=== PATIENT | female | born 1950 | race Caucasian/White ===

== ENCOUNTER 2017-02-17 16:19 | Outpatient (CLI) | payer BC | END 2017-02-17 16:20 | disposition home or self-care (01) | DX: S83.91XA Sprain of unspecified site of right knee, initial encounter (principal); M25.461 Effusion, right knee ==

== ENCOUNTER 2017-02-20 08:46 | Outpatient (CLI) | payer BC | END 2017-02-20 08:47 | disposition home or self-care (01) | DX: Z13.820 Encounter for screening for osteoporosis (principal); M85.88 Other specified disorders of bone density and structure, other site; Z78.0 Asymptomatic menopausal state ==

== ENCOUNTER 2017-05-09 10:53 | Outpatient (CLI) | payer BC ==
[2017-05-09 18:15] LABS: ALBUMIN/GLOBULIN RATIO 1.2 (1.0-2.2); BILIRUBIN,TOTAL 0.6 mg/dL (0.2-1.0); CALCIUM 9.4 mg/dL (8.5-10.3); CREATININE 0.6 mg/dL (0.4-1.0); TOTAL PROTEIN 7.7 g/dL (6.7-8.2)
== END 2017-05-09 10:54 | disposition home or self-care (01) ==
LOC: LAB.F 10:53
PROVIDERS: ATTEND Physician Assistant Medical
DX: Z79.899 Other long term (current) drug therapy (principal)
CPT/HCPCS: 36415; 80053

== ENCOUNTER 2018-04-15 08:00 | Outpatient (CLI) | payer MEDICARE, OTHER ==
[2018-04-15 17:48] LABS: BASOPHILS # (AUTO) 0.1 10^3/uL (0.0-0.1); BASOPHILS % (AUTO) 0.8 %; EOSINOPHILS # (AUTO) 0.2 10^3/uL (0.0-0.7); EOSINOPHILS % (AUTO) 2.1 %; HGB - HEMOGLOBIN 13.4 g/dL (12.0-16.0); LYMPHOCYTES # (AUTO) 2.3 10^3/uL (1.5-3.5); LYMPHOCYTES % (AUTO) 27.2 %; MEAN CORPUSCULAR HEMOGLOBIN 30.3 pg (27.0-31.0); MEAN CORPUSCULAR HGB CONC 33.5 g/dL (32.0-36.0); MEAN CORPUSCULAR VOLUME 90.5 fL (81.0-99.0); MEAN PLATELET VOLUME 8.4 fL (7.9-10.8); MONOCYTES # (AUTO) 0.8 10^3/uL (0.0-1.0); MONOCYTES % (AUTO) 9.3 %; NEUTROPHILS # (AUTO) 5.1 10^3/uL (1.5-6.6); NEUTROPHILS % (AUTO) 60.6 %; PLT - PLATELET COUNT 252 10^3/uL (130-450); RED BLOOD COUNT 4.41 10^6/uL (4.20-5.40); RED CELL DISTRIBUTION WIDTH 14.4 % (12.0-15.0); WHITE BLOOD COUNT 8.5 x10^3/uL (4.8-10.8)
[2018-04-15 17:56] LABS: ALBUMIN/GLOBULIN RATIO 1.2 (1.0-2.2); BILIRUBIN,TOTAL 0.6 mg/dL (0.2-1.0); CALCIUM 9.2 mg/dL (8.5-10.3); CREATININE 0.6 mg/dL (0.4-1.0); TOTAL PROTEIN 7.4 g/dL (6.7-8.2)
== END 2018-04-15 08:01 | disposition home or self-care (01) ==
LOC: LAB.F 08:00
PROVIDERS: ATTEND Physician Assistant Medical
DX: Z51.81 Encounter for therapeutic drug level monitoring (principal)
CPT/HCPCS: 36415; 80053; 85025

== ENCOUNTER 2018-06-21 15:02 | Emergency (ER) | payer MEDICARE, OTHER ==
[2018-06-21 15:09] VITALS: BP 127/70
--- NOTE | 2018-06-21 15:39 | XRAY Report ---
Procedure Date: 06/21/2018 Accession Number: [id number] / [id number] Procedure: XR - Wrist 4 View LT CPT Code: FULL RESULT: EXAM: LEFT WRIST RADIOGRAPHY EXAM DATE: 06/21/2018 03:00 PM. CLINICAL HISTORY: Trauma. COMPARISON: None. TECHNIQUE: 4 views. FINDINGS: Bones: There is a linear lucency seen across the distal radial metaphysis on the scaphoid and oblique views. Carpal bones appear intact. Proximal metacarpals appear unremarkable. Joints: Alignment appears normal. Soft Tissues: There is soft tissue swelling adjacent to the distal radius. IMPRESSION: Nondisplaced distal radial metaphysis fracture. RADIA
--- NOTE | 2018-06-21 15:46 | ED Physician Documentation ---
PD HPI UPPER EXT INJURY - Stated complaint Stated Complaint: LEFT WRIST INJURY - Chief complaint Chief Complaint: Ext Problem - History obtained from History obtained from: Patient - History of Present Illness Location: Left, Wrist Type of injury: Fall (slid and fell, caught herself with left outstretched arm.) Timing - onset: Today Timing - details: Abrupt onset, Still present Improved by: Rest Worsened by: Moving, Palpating Associated symptoms: Swelling. No: Weakness, Numbness Similar symptoms before: Has not had sx before Recently seen: Not recently seen Review of Systems Skin: denies: Abrasion (s), Laceration (s) Musculoskeletal: denies: Neck pain, Back pain Neurologic: denies: Focal weakness, Numbness, Altered mental status, Headache, Head injury PD PAST MEDICAL HISTORY - Past Medical History Past Medical History: Yes Psych: Depression - Past Surgical History Past Surgical History: Yes /[employer]: Hysterectomy - Present Medications Home Medications: Ambulatory Orders Medication Instructions Recorded Confirmed FLUoxetine [PROzac] 20 mg PO DAILY 06/21/18 06/21/18 HYDROcod/ACETAM 5/325 [[place] 5/325] 1 tab PO Q6H PRN #15 tablet 06/21/18 Hydrocodone/Acetaminophen [Vicodin 1 each PO 06/21/18 5-300 mg Tablet] - Allergies Allergies/Adverse Reactions: Allergies Allergy/AdvReac Type Severity Reaction Status Date / Time No Known Drug Allergies Allergy Verified 06/21/18 15:07 - Social History Does the pt smoke?: Yes Smoking Status: Current every day smoker Does the pt drink ETOH?: Yes Does the pt have substance abuse?: No - POLST Patient has POLST: No PD ED PE NORMAL - Vitals Vital signs reviewed: Yes - General General: Alert and oriented X 3, No acute distress, Well developed/nourished - HEENT HEENT: Atraumatic - Neck Neck: Supple, no meningeal sign, No bony TTP, No adenopathy - Respiratory Respiratory: Clear bilaterally, Other (no chestwall tenderness) - Abdomen Abdomen: Soft, Non tender - Derm Derm: Normal color, Warm and dry - Extremities Extremities: Other (left wrist tender at distal radius. elbow and shoulder not tender. Good color and cap refill in fingers. ) - Neuro Neuro: Alert and oriented X 3, No motor deficit, No sensory deficit, Normal speech Results - Vitals Vitals: Vital Signs - 24 hr 06/21/18 15:05 Temperature 36.6 C Heart Rate 79 Respiratory 18 Rate Blood Pressure 127/70 O2 Saturation 98 Oxygen O2 Source Room air - Rads (name of study) left wrist Radiology: Prelim report reviewed, EMP read contemporaneously (distal radius fracture, nondisplaced. ) Procedures - Splint (location) left wrist Splint applied by: Tech Type of splint: Prefab velcro wrist Other: Patient tolerated well, No complications, Neurovascular intact, Sling provided PD MEDICAL DECISION MAKING - ED course Complexity details: reviewed results (nondisplaced distal radial fracture, appears very stable. Will treat with splint. ), considered differential, d/w patient - Sepsis Event Vital Signs: Vital Signs - 24 hr 06/21/18 15:05 Temperature 36.6 C Heart Rate 79 Respiratory 18 Rate Blood Pressure 127/70 O2 Saturation 98 Oxygen O2 Source Room air Departure - Departure Disposition: 01 Home, Self Care Clinical Impression: Fall from slip, trip, or stumble Qualifiers: Encounter type: initial encounter Qualified Code(s): W01.0XXA - Fall on same level from slipping, tripping and stumbling without subsequent striking against object, initial encounter Distal radius fracture, left Qualifiers: Encounter type: initial encounter Fracture type: closed Fracture morphology: unspecified fracture morphology Qualified Code(s): S52.502A - Unspecified fracture of the lower end of left radius, initial encounter for closed fracture Condition: Stable Record reviewed to determine appropriate education?: Yes Instructions: ED Fx Wrist General Follow-Up: Iwona Chavez PA-C [Primary Care Provider] - [facility] [Provider Group] Prescriptions: HYDROcod/ACETAM 5/325 [[place] 5/325] 1 tab PO Q6H PRN #15 tablet PRN Reason: Pain Comments: Keep the splint on for the next 4-6 weeks until well healed. The duration will be based on follow-up exams. Call your primary care tomorrow to see if they want to do the follow-up or they would prefer you to go to orthopedics. Call for an appointment for follow-up appointment to be in about 1-1/2 weeks. Use some ibuprofen or naproxen 2-3 times a day for pain and add Tylenol or hydrocodone if needed for pain. Rest ice and elevate your wrist often. Minimal lifting and use of your wrist until follow-up. Discharge Date/Time: 06/21/18 17:00
[2018-06-21] MEDS ORDERED: HYDROcod/ACETAM 5/325 MG TABLET PO STA (16:12)
[2018-06-21] MEDS ORDERED: IBUPROFEN 600 MG TABLET PO STA (16:12)
== END 2018-06-21 17:00 | disposition home or self-care (01) ==
LOC: ED 15:02
DX: S52.502A Unspecified fracture of the lower end of left radius, initial encounter for closed fracture (principal); W01.0XXA Fall on same level from slipping, tripping and stumbling without subsequent striking against object, initial encounter
CPT/HCPCS: 73110; 99283; A9270

== ENCOUNTER 2018-07-17 08:46 | Outpatient (CLI) | payer MEDICARE, OTHER ==
--- NOTE | 2018-07-17 13:00 | XRAY Report ---
Procedure Date: 07/17/2018 Accession Number: [id number] / [id number] Procedure: XRS - Wrist 2 View LT CPT Code: FULL RESULT: EXAM: LEFT WRIST RADIOGRAPHY EXAM DATE: 07/17/2018 08:57 AM. CLINICAL HISTORY: Other fractures of lower end of left radius. COMPARISON: Wrist 4 views, left 06/21/2018. TECHNIQUE: 3 views. FINDINGS: Bones: Interval development of lucent line bordered by sclerosis, confirming the previously suspected nondisplaced radial fracture in good alignment with ongoing healing. Joints: Normal. No subluxations. Soft Tissues: Normal. No soft tissue swelling. IMPRESSION: Ongoing healing of essentially nondisplaced radial head fracture. RADIA
== END 2018-07-17 08:47 | disposition home or self-care (01) ==
LOC: DI.S 08:46
PROVIDERS: ATTEND Physician Assistant Medical
DX: S52.125D Nondisplaced fracture of head of left radius, subsequent encounter for closed fracture with routine healing (principal)

== ENCOUNTER 2018-09-08 11:27 | Outpatient (CLI) | payer MEDICARE, OTHER ==
--- NOTE | 2018-09-08 16:18 | XRAY Report ---
Reason: ELBOW JOINT PAIN, LEFT Procedure Date: 09/08/2018 Accession Number: [id number] / [id number] Procedure: XR - Elbow 3 View LT CPT Code: FULL RESULT: EXAM: LEFT ELBOW RADIOGRAPHY EXAM DATE: 09/08/2018 11:45 AM. CLINICAL HISTORY: Elbow joint pain, left. COMPARISON: None. TECHNIQUE: 3 views. FINDINGS: Bones: Normal. No fractures or bone lesions. Joints: Normal. No effusion. No subluxation. Soft Tissues: Normal. No soft tissue swelling. IMPRESSION: Normal elbow radiography. RADIA
== END 2018-09-08 11:28 | disposition home or self-care (01) ==
LOC: DI 11:27
PROVIDERS: ATTEND Physician Assistant Medical
DX: M25.522 Pain in left elbow (principal)

== ENCOUNTER 2019-03-01 11:00 | Outpatient (CLI) | payer MEDICARE, OTHER ==
[2019-03-01 20:12] LABS: BILIRUBIN,URINE NEGATIVE (NEGATIVE); GLUCOSE, URINE (UA) NEGATIVE (NEGATIVE); KETONES,URINE (UA) NEGATIVE (NEGATIVE); LEUKOCYTE ESTERASE, URINE NEGATIVE (NEGATIVE); NITRITE,URINE NEGATIVE (NEGATIVE); OCCULT BLOOD,URINE TRACE-LYSE (NEGATIVE); PROTEIN,URINE NEGATIVE (NEGATIVE); UROBILINOGEN,URINE 0.2 (NORMAL) E.U./dL (NORMAL)
[2019-03-01 20:24] LABS: BACTERIA,URINE None Seen /HPF (None Seen); CLARITY,URINE CLEAR (CLEAR); RBC,URINE 0-5 /HPF (0-5); SQUAMOUS EPITHELIAL CELL,UR FEW Squamous (<= Few)
== END 2019-03-01 23:59 | disposition home or self-care (01) ==
LOC: LAB.R 11:00
PROVIDERS: ATTEND Physician Assistant Medical
DX: R10.9 Unspecified abdominal pain (principal); N10 Acute pyelonephritis
CPT/HCPCS: 81001; 87086

== ENCOUNTER 2019-03-01 15:34 | Outpatient (CLI) | payer MEDICARE, OTHER ==
[2019-03-01 16:06] LABS: ALBUMIN 3.6 g/dL (3.2-5.5); ALBUMIN/GLOBULIN RATIO 0.8 (1.0-2.2); BILIRUBIN,TOTAL 0.5 mg/dL (0.2-1.0); CALCIUM 9.6 mg/dL (8.5-10.3); CREATININE 0.8 mg/dL (0.4-1.0)
--- NOTE | 2019-03-01 17:03 | CT Report ---
Reason: FLANK PAIN,RIGHT, PYELONEPHRITIS,ACUTE Procedure Date: 03/01/2019 Accession Number: [id number] / [id number] Procedure: CT - Abdomen/Pelvis WO CPT Code: FULL RESULT: EXAM: CT ABDOMEN AND PELVIS (CT KUB) EXAM DATE: 03/01/2019 04:24 PM. CLINICAL HISTORY: FLANK PAIN,RIGHT, PYELONEPHRITIS,ACUTE. COMPARISONS: None. TECHNIQUE: Routine axial helical CT imaging was performed through the abdomen and pelvis without IV contrast. Reconstructions: Coronal and sagittal. In accordance with CT protocol optimization, one or more of the following dose reduction techniques were utilized for this exam: automated exposure control, adjustment of mA and/or KV based on patient size, or use of iterative reconstructive technique. FINDINGS: Lung Bases: There is moderate volume loss in the visualized right lower lobe including bandlike opacity anteriorly along the minor fissure and patchy opacity at the posterior lateral costophrenic sulcus. In addition, there is scattered ill-defined peribronchial micronodularity in the right lower lobe. The remainder of the lung bases is clear. Right Kidney/Ureter: No stones, hydronephrosis, or hydroureter. No perinephric fat stranding. Left Kidney/Ureter: No stones, hydronephrosis, or hydroureter. No perinephric fat stranding. Other Solid Organs: Noncontrast images of the solid organs are grossly unremarkable. Gallbladder/Bile Ducts: Unremarkable. Peritoneal Cavity: Unopacified stomach and small bowel are nondistended. Retrocecal appendix is normal. There is a small amount of formed stool in the colon. There is no focal pericolonic fat stranding. There is no lymphadenopathy, ascites, or pneumoperitoneum. Pelvic Organs: Small volume bladder without stones. Uterus appears to be surgically absent. No adnexal mass is identified. Vasculature: There is mild aortoiliac atherosclerotic calcification without abnormal dilation. Other: Abdominal wall is unremarkable. Mild degenerative disk disease at L1-L2 and L3-L4. IMPRESSION: 1. No urinary tract stones or obstruction. 2. Moderate right lower lobe volume loss with peripheral areas of airspace consolidation anteriorly and posterolaterally in addition to minimal peribronchial micronodularity. The findings suggest chronic or prior bronchopneumonia. RADIA
== END 2019-03-01 15:35 | disposition home or self-care (01) ==
LOC: LAB 15:34
PROVIDERS: ATTEND Physician Assistant Medical
DX: R10.9 Unspecified abdominal pain (principal); R31.9 Hematuria, unspecified; R91.8 Other nonspecific abnormal finding of lung field; Z87.440 Personal history of urinary (tract) infections
CPT/HCPCS: 36415; 74176; 80053

== ENCOUNTER 2019-04-28 10:23 | Outpatient (CLI) | payer MEDICARE, OTHER ==
[2019-04-28 17:34] LABS: BASOPHILS # (AUTO) 0.1 10^3/uL (0.0-0.1); BASOPHILS % (AUTO) 0.6 %; EOSINOPHILS # (AUTO) 0.1 10^3/uL (0.0-0.7); EOSINOPHILS % (AUTO) 0.5 %; HGB - HEMOGLOBIN 10.8 g/dL (12.0-16.0); LYMPHOCYTES # (AUTO) 1.7 10^3/uL (1.5-3.5); LYMPHOCYTES % (AUTO) 11.4 %; MEAN CORPUSCULAR HEMOGLOBIN 27.2 pg (27.0-31.0); MEAN CORPUSCULAR HGB CONC 32.2 g/dL (32.0-36.0); MEAN CORPUSCULAR VOLUME 84.4 fL (81.0-99.0); MEAN PLATELET VOLUME 7.6 fL (7.9-10.8); MONOCYTES # (AUTO) 1.2 10^3/uL (0.0-1.0); MONOCYTES % (AUTO) 7.7 %; NEUTROPHILS # (AUTO) 12.1 10^3/uL (1.5-6.6); NEUTROPHILS % (AUTO) 79.8 %; PLT - PLATELET COUNT 466 10^3/uL (130-450); RED BLOOD COUNT 3.97 10^6/uL (4.20-5.40); RED CELL DISTRIBUTION WIDTH 15.1 % (12.0-15.0); WHITE BLOOD COUNT 15.1 x10^3/uL (4.8-10.8)
== END 2019-04-28 10:24 | disposition home or self-care (01) ==
LOC: LAB.F 10:23
PROVIDERS: ATTEND Physician Assistant Medical
DX: R53.83 Other fatigue (principal); R63.4 Abnormal weight loss
CPT/HCPCS: 36415; 84443; 85025

== ENCOUNTER 2019-04-28 11:29 | Outpatient (CLI) | payer OTHER, MEDICARE ==
--- NOTE | 2019-04-28 18:45 | XRAY Report ---
Reason: SHOULDER JOINT PAIN,LEFT Procedure Date: 04/28/2019 Accession Number: [id number] / [id number] Procedure: XR - Shoulder 2 View LT CPT Code: FULL RESULT: EXAM: LEFT SHOULDER RADIOGRAPHY EXAM DATE: 04/28/2019 12:08 PM. CLINICAL HISTORY: SHOULDER JOINT PAIN,LEFT. COMPARISON: None. TECHNIQUE: 3 views. FINDINGS: Bones: No fracture or bone lesion. Joints: The glenohumeral and acromioclavicular joints are anatomically aligned. Soft tissues: The included hemithorax is unremarkable. No soft tissue calcification. IMPRESSION: No significant abnormality left shoulder radiography. RADIA
== END 2019-04-28 11:30 | disposition home or self-care (01) ==
LOC: DI 11:29
PROVIDERS: ATTEND Physician Assistant Medical
DX: M25.512 Pain in left shoulder (principal)

== ENCOUNTER 2019-04-30 08:00 | Outpatient (CLI) | payer MEDICARE, OTHER | END 2019-04-30 23:59 | disposition home or self-care (01) | LOC: LAB.R 08:00 | PROVIDERS: ATTEND Physician Assistant Medical | DX: J02.9 Acute pharyngitis, unspecified (principal) | CPT/HCPCS: 87070 ==

== ENCOUNTER 2019-04-30 09:58 | Outpatient (CLI) | payer MEDICARE, OTHER ==
[2019-04-30 17:50] LABS: BILIRUBIN,URINE NEGATIVE (NEGATIVE); GLUCOSE, URINE (UA) NEGATIVE (NEGATIVE); KETONES,URINE (UA) TRACE mg/dL (NEGATIVE); LEUKOCYTE ESTERASE, URINE NEGATIVE (NEGATIVE); NITRITE,URINE NEGATIVE (NEGATIVE); OCCULT BLOOD,URINE TRACE-INTA (NEGATIVE); PROTEIN,URINE NEGATIVE (NEGATIVE); UROBILINOGEN,URINE 0.2 (NORMAL) E.U./dL (NORMAL)
[2019-04-30 18:03] LABS: FERRITIN 185.4 ng/mL (11.0-306.8)
[2019-04-30 18:08] LABS: CLARITY,URINE CLEAR (CLEAR)
[2019-04-30 18:25] LABS: BACTERIA,URINE Rare /HPF (None Seen); CRYSTALS,URINE 3-5 Calcium Oxalate /LPF; RBC,URINE 0-5 /HPF (0-5); SQUAMOUS EPITHELIAL CELL,UR MANY Squamous (<= Few)
== END 2019-04-30 09:59 | disposition home or self-care (01) ==
LOC: LAB.F 09:58
PROVIDERS: ATTEND Physician Assistant Medical
DX: R50.9 Fever, unspecified (principal); R53.83 Other fatigue; R63.4 Abnormal weight loss; R79.89 Other specified abnormal findings of blood chemistry
CPT/HCPCS: 36415; 81001; 81599; 82607; 82728; 86665; 87070; 87086

== ENCOUNTER 2019-05-10 14:54 | Outpatient (CLI) | payer MEDICARE, OTHER ==
--- NOTE | 2019-05-10 15:57 | CT Report ---
Reason: ABNORMAL LUNG IMAGING Procedure Date: 05/10/2019 Accession Number: [id number] / [id number] Procedure: CT - CHEST WO CPT Code: FULL RESULT: EXAM: CT CHEST EXAM DATE: 05/10/2019 03:22 PM. CLINICAL HISTORY: Abnormal right lung finding on a recent CT abdomen and pelvis. COMPARISONS: ABDOMEN/PELVIS W/O 03/01/2019 4:18 PM. TECHNIQUE: Routine helical CT imaging was performed through the chest. IV contrast: None. Reconstructions: Coronal and sagittal. In accordance with CT protocol optimization, one or more of the following dose reduction techniques were utilized for this exam: automated exposure control, adjustment of mA and/or KV based on patient size, or use of iterative reconstructive technique. FINDINGS: Lungs/Pleura: There is complete right lower lobe collapse. There is complete obstruction of the bronchus intermedius. There is an ill-defined round parenchymal consolidation measuring approximately 3 cm maximal diameter located in the central right lung abutting the right hilum. No other significant parenchymal abnormality. Mediastinum: There is a mildly enlarged right precarinal mediastinal lymph node measuring 20 x 16 mm diameter. There is an approximate 13 mm maximal diameter right paratracheal lymph node. There is an approximately 2 cm maximal diameter subcarinal mediastinal lymph node. The right hilum cannot be evaluated because of right lower lobe collapse. Bones: Unremarkable. Visualized Abdomen: Unremarkable. Other: None. IMPRESSION: 1. There is complete right lower lobe collapse with complete obstruction of the bronchus intermedius. 2. Nonspecific mildly enlarged right paratracheal, right precarinal, and subcarinal lymph nodes. Metastatic disease is not excluded. 3. There is an approximate 3 cm maximal diameter juxta hilar central right lung consolidation. 4. Consider pulmonary consultation. RADIA
== END 2019-05-10 14:55 | disposition home or self-care (01) ==
LOC: DI 14:54
PROVIDERS: ATTEND Physician Assistant Medical
DX: J98.19 Other pulmonary collapse (principal); J98.09 Other diseases of bronchus, not elsewhere classified; R59.0 Localized enlarged lymph nodes; J18.1 Lobar pneumonia, unspecified organism
CPT/HCPCS: 71250

== ENCOUNTER 2019-05-20 11:48 | Outpatient (CLI) | payer MEDICARE, OTHER | END 2019-05-20 11:49 | disposition short-term general hospital (02) | LOC: EMS 11:48 | PROVIDERS: ATTEND Surgery | DX: R06.02 Shortness of breath (principal) | CPT/HCPCS: A0425; A0429 ==